=== PATIENT | female | born 1995 | race Caucasian/White ===

== ENCOUNTER 2017-12-25 11:04 | Emergency (ER) | payer OTHER | END 2017-12-25 11:27 | disposition home or self-care (01) | LOC: SCSER 11:04 | DX: M27.2 Inflammatory conditions of jaws (principal); J02.9 Acute pharyngitis, unspecified; F32.9 Major depressive disorder, single episode, unspecified; Z79.899 Other long term (current) drug therapy | CPT/HCPCS: 99282 ==